=== PATIENT | male | born 1940 | race Caucasian/White ===

== ENCOUNTER 2023-04-17 10:47 | Emergency (ER) | payer MEDICARE, MEDICAID ==
[~2023-04-17] VITALS: Ht 177.8 cm; Wt 90.0 kg
[2023-04-17 10:51] VITALS: TEMP 98.4; O2SAT 99
[2023-04-17] MEDS: SODIUM CHLORIDE 0.9% 1,000 ML IV ONE (12:02)
[2023-04-17 12:51] LABS: HEMATOCRIT. 34.8 % (42.0-52.0); HEMOGLOBIN. 11.7 g/dL (14.0-18.0); MEAN CORPUSCULAR HEMOGLOBIN 30.8 pg (28.0-32.0); MEAN CORPUSCULAR HGB CONC 33.7 g/dL (31.0-37.0); MEAN CORPUSCULAR VOLUME 91.5 fL (80.0-94.0); MEAN PLATELET VOLUME 8.3 fl (7.4-10.4); PLATELET 149 x1000/uL (130-400); RED CELL DISTRIBUTION WIDTH 13.7 % (11.6-14.6); WHITE BLOOD COUNT 8.8 x1000/uL (4.5-11.0)
[2023-04-17 12:52] LABS: DIFFERENTIAL COMMENT 1
[2023-04-17 13:16] LABS: ALANINE AMINOTRANSFERASE 23 IU/L (10-49); ASPARTATE AMINOTRANSFERASE 22 IU/L (<34); BILIRUBIN TOTAL 0.5 mg/dL (0.1-1.0); CALCIUM 8.8 mg/dL (8.7-10.4); CARBON DIOXIDE 25 mEq/L (21-32); CHLORIDE 105 mEq/L (98-107); CREATININE 1.8 mg/dL (0.6-1.3); GLUCOSE 166 mg/dL (70-105); POTASSIUM 5.3 mEq/L (3.5-5.1); SODIUM 137 mEq/L (136-145); TROPONIN I HIGH SENSITIVITY 5 ng/L (3.0-53); UREA NITROGEN BLOOD 38 mg/dL (9-23)
[2023-04-17 13:29] LABS: PLATELET ESTIMATE NORMAL
[2023-04-17] MEDS ORDERED: CEPH500T MT (20:15)
[2023-04-17 20:28] VITALS: BP 148/52; PULSE 75; RESP 15
== END 2023-04-17 20:15 | disposition left against medical advice (07) ==
LOC: ER 10:47 → EDBEDREQ 13:32 → CANBEDREQ 15:43 → ER 20:15
DX: N17.9 Acute kidney failure, unspecified (principal); R55 Syncope and collapse; E11.9 Type 2 diabetes mellitus without complications; I10 Essential (primary) hypertension; E78.00 Pure hypercholesterolemia, unspecified; Z98.890 Other specified postprocedural states
CPT/HCPCS: 99285; 96360; 70450; 71045; 80053; 85025; 84484; 36415; 93005; J7030

== ENCOUNTER 2023-12-12 08:41 | Emergency (ER) | payer OTHER, MEDICAID ==
[~2023-12-12] VITALS: Ht 177.8 cm; Wt 95.0 kg
[~2023-12-12 08:41] MED LIST: CEPH500T MT
[2023-12-12 08:44] VITALS: O2SAT 99
[2023-12-12] MEDS: HYDROCODONE/ACETAMINOPHEN 5/325MG TABLET PO STA (09:35)
[2023-12-12 09:36] LABS: BASOPHILS % 0.6 % (0.0-2.0); EOSINOPHILS % 3.5 % (0.0-5.0); HEMATOCRIT. 36.5 % (42.0-52.0); HEMOGLOBIN. 12.3 g/dL (14.0-18.0); LYMPHOCYTES % 23.9 % (20.0-50.0); MEAN CORPUSCULAR HEMOGLOBIN 31.5 pg (28.0-32.0); MEAN CORPUSCULAR HGB CONC 33.6 g/dL (31.0-37.0); MEAN CORPUSCULAR VOLUME 93.7 fL (80.0-94.0); MEAN PLATELET VOLUME 8.5 fl (7.4-10.4); MONOCYTES % 7.8 % (2.0-8.0); NEUTROPHILS % 64.2 % (40.0-76.0); PLATELET 186 x1000/uL (130-400); RED BLOOD CELL COUNT 3.89 mill/uL (4.7-6.1); RED CELL DISTRIBUTION WIDTH 14.2 % (11.6-14.6); WHITE BLOOD COUNT 4.1 x1000/uL (4.5-11.0)
[2023-12-12 09:43] LABS: CHLORIDE 108 mEq/L (98-107); POTASSIUM 4.1 mEq/L (3.5-5.1); SODIUM 139 mEq/L (136-145)
[2023-12-12 09:44] LABS: CALCIUM 9.3 mg/dL (8.7-10.4); CARBON DIOXIDE 26 mEq/L (21-32)
[2023-12-12 09:48] LABS: PROTHROMBIN TIME 10.8 sec (9.6-11.0)
[2023-12-12 09:49] LABS: CREATININE 1.7 mg/dL (0.6-1.3); GLUCOSE 123 mg/dL (70-105); UREA NITROGEN BLOOD 19 mg/dL (9-23)
[2023-12-12 09:51] LABS: ALANINE AMINOTRANSFERASE 18 IU/L (10-49); ASPARTATE AMINOTRANSFERASE 17 IU/L (<34); BILIRUBIN DIRECT 0.1 mg/dL (<=3.0); BILIRUBIN TOTAL 0.4 mg/dL (0.1-1.0); PROTEIN TOTAL 7.2 g/dL (6.0-8.3)
[2023-12-12 11:10] LABS: CLARITY URINE CLEAR (CLEAR); COLOR URINE YELLOW (YELLOW); GLUCOSE URINE NEGATIVE (NEGATIVE); KETONES URINE NEGATIVE (NEGATIVE); LEUKOCYTE ESTERASE URINE 2+ (NEGATIVE); NITRITE URINE NEGATIVE (NEGATIVE); OCCULT BLOOD URINE TRACE (NEGATIVE); PH URINE 6.5 (4.5-8.0); PROTEIN URINE 2+ (NEGATIVE); SPECIFIC GRAVITY URINE 1.014 (1.005-1.030); UROBILINOGEN URINE 0.2 E.U./dL (0.2-1.0)
[2023-12-12] MEDS: CEPHALEXIN 250MG CAPSULE PO NR (12:28)
[2023-12-12 12:31] LABS: BACTERIA URINE 3+; SQUAMOUS EPITHELIAL CELL URINE RARE /lpf (RARE/1+); WBC URINE 50-100 /hpf (0-2)
[2023-12-12 13:18] LABS: TROPONIN I HIGH SENSITIVITY 7 ng/L (3.0-53)
[2023-12-12 13:57] VITALS: TEMP 36.72516
[2023-12-12 15:32] VITALS: BP 173/59; PULSE 52; RESP 14; O2SAT 97
== END 2023-12-12 16:10 | disposition home or self-care (01) ==
LOC: ER 09:28
DX: N39.0 Urinary tract infection, site not specified (principal); R00.1 Bradycardia, unspecified; E11.9 Type 2 diabetes mellitus without complications; E78.00 Pure hypercholesterolemia, unspecified; F03.90 Unspecified dementia, unspecified severity, without behavioral disturbance, psychotic disturbance, mood disturbance, and anxiety; I10 Essential (primary) hypertension
CPT/HCPCS: 36415; 71045; 74176; 80048; 80076; 81003; 84484; 85025; 87077; 87186; 93005; 99285

== ENCOUNTER 2024-03-16 13:09 | Emergency (ER) | payer OTHER, MEDICAID ==
[~2024-03-16] VITALS: Ht 175.3 cm; Wt 82.0 kg
[2024-03-16 13:20] VITALS: BP 162/58; RESP 16; TEMP 99; O2SAT 97
[2024-03-16 13:49] VITALS: PULSE 80; O2SAT 99
[2024-03-16 15:15] LABS: POTASSIUM 5.1 mEq/L (3.5-5.1)
[2024-03-16 15:16] LABS: CALCIUM 9.3 mg/dL (8.7-10.4)
[2024-03-16 15:17] LABS: BASOPHILS % 0.4 % (0.0-2.0); EOSINOPHILS % 5.5 % (0.0-5.0); HEMATOCRIT. 37.7 % (42.0-52.0); HEMOGLOBIN. 12.5 g/dL (14.0-18.0); LYMPHOCYTES % 22.4 % (20.0-50.0); MEAN CORPUSCULAR HEMOGLOBIN 30.7 pg (28.0-32.0); MEAN CORPUSCULAR HGB CONC 33.1 g/dL (31.0-37.0); MEAN CORPUSCULAR VOLUME 92.8 fL (80.0-94.0); MEAN PLATELET VOLUME 8.5 fl (7.4-10.4); MONOCYTES % 8.4 % (2.0-8.0); NEUTROPHILS % 63.3 % (40.0-76.0); PLATELET 190 x1000/uL (130-400); RED BLOOD CELL COUNT 4.06 mill/uL (4.7-6.1); RED CELL DISTRIBUTION WIDTH 15.2 % (11.6-14.6); WHITE BLOOD COUNT 5.4 x1000/uL (4.5-11.0)
[2024-03-16 15:21] LABS: CREATININE 1.6 mg/dL (0.6-1.3)
[2024-03-16] MEDS ORDERED: ACETAMINOPHEN 325MG TABLET PO STA (15:27)
[2024-03-16 16:25] LABS: TROPONIN I HIGH SENSITIVITY 8 ng/L (3.0-53)
[2024-03-16] MEDS ORDERED: CEFTRIAXONE 1GM/50ML 50 ML IV ONE (18:00)
[2024-03-16] MEDS ORDERED: AZITHROMYCIN 500MG/250ML 250 ML IV SCH (18:00)
[2024-03-16 18:14] LABS: CLARITY URINE CLEAR (CLEAR); COLOR URINE YELLOW (YELLOW); GLUCOSE URINE NEGATIVE (NEGATIVE); KETONES URINE NEGATIVE (NEGATIVE); LEUKOCYTE ESTERASE URINE NEGATIVE (NEGATIVE); NITRITE URINE NEGATIVE (NEGATIVE); OCCULT BLOOD URINE NEGATIVE (NEGATIVE); PH URINE 5.5 (4.5-8.0); PROTEIN URINE NEGATIVE (NEGATIVE); SPECIFIC GRAVITY URINE 1.019 (1.005-1.030); UROBILINOGEN URINE 0.2 E.U./dL (0.2-1.0)
== END 2024-03-16 18:42 | disposition left against medical advice (07) ==
LOC: ER 13:09
DX: R07.89 Other chest pain (principal); R30.0 Dysuria; J18.9 Pneumonia, unspecified organism; I10 Essential (primary) hypertension; E11.9 Type 2 diabetes mellitus without complications; E78.00 Pure hypercholesterolemia, unspecified; F03.90 Unspecified dementia, unspecified severity, without behavioral disturbance, psychotic disturbance, mood disturbance, and anxiety
CPT/HCPCS: 36415; 71045; 80048; 81003; 84484; 85025; 99284